=== PATIENT | male | born 1955 | race African-American/Black ===

== ENCOUNTER → 2016-11-16 | Outpatient (CLI) | payer OTHER ==
--- NOTE | 2016-11-16 22:12 | XR ---
EXAMINATION TYPE: XR chest 2V DATE OF EXAM: 11/16/2016 COMPARISON: NONE HISTORY: Shortness of breath. TECHNIQUE: Frontal and lateral views of the chest are obtained. FINDINGS: Sternal wires are present. There is chronic parenchymal change without suspicious focal ai r space opacity, pleural effusion, or pneumothorax seen. The cardiac silhouette size is within ender l limits. The osseous structures are intact. IMPRESSION: No acute cardiopulmonary process.
--- NOTE | 2016-11-16 22:14 | XR ---
EXAMINATION TYPE: XR knee complete LT DATE OF EXAM: 11/16/2016 CLINICAL HISTORY: Left knee pain for years. TECHNIQUE: Three views of the left knee are obtained. COMPARISON: None. FINDINGS: There is no acute fracture/dislocation evident in left knee. There is patella baja. Some o ssific fragmentation along inferior patellar pole is present. There is calcification along distal susanne driceps tendon. Suspect old injury or tear. There is mild to moderate medial compartment joint space loss. Slight genu varum positioning is present. The overlying soft tissue shows anterior bulging trev g course of distal quadriceps tendon which appears slightly thinned. IMPRESSION: Old complete tear quadriceps tendon suspected with low lying patella, inferior fragmentat ion may reflect product of old trauma or degenerative change related to trauma. Other degenerative fi ndings as noted above.
== END | disposition home or self-care (01) ==
LOC: RADXRMAIN 18:05
PROVIDERS: ATTEND Family Medicine
DX: S76.112A Strain of left quadriceps muscle, fascia and tendon, initial encounter (principal); R06.02 Shortness of breath; N41.0 Acute prostatitis
CPT/HCPCS: 71020

== ENCOUNTER → 2016-11-22 | Outpatient (CLI) | payer OTHER ==
--- NOTE | 2016-11-22 17:04 | US ---
EXAMINATION TYPE: US prostate transrectal DATE OF EXAM: 11/22/2016 COMPARISON: NONE CLINICAL HISTORY: N41.0 acute prostatitis. This examination was performed using the transrectal probe. EXAM MEASUREMENTS: Gland Size: 4.5 x 2.1 x 3.7cm Volume: 17.6 Predicted PSA: 2.1 Actual PSA (if available):Not available, patient didn't bring and office closed on . Peripheral zone grossly heterogeneous. Office not open today IMPRESSION: 1. Echogenic foci with posterior shadowing can be compatible with calcification within the prostate. 2. Heterogeneity which can be compatible with prostatitis. Predicted PSA = volume x 0.12 ng/ml Calculated Volume = 0.5236 x L x W x H
== END | disposition home or self-care (01) ==
LOC: RADUSMAIN 07:49
PROVIDERS: ATTEND Family Medicine
DX: N41.0 Acute prostatitis (principal); R93.49 Abnormal radiologic findings on diagnostic imaging of other urinary organs
CPT/HCPCS: 76872

== ENCOUNTER → 2017-01-10 | Outpatient (CLI) | payer OTHER ==
--- NOTE | 2017-01-10 15:25 | BD ---
EXAMINATION TYPE: MG DEXA axial skeleton. DATE OF EXAM: 01/10/2017 COMPARISON: NONE CLINICAL HISTORY: disorder of bone Height: 5'11 Weight: 250 FRAX RISK QUESTIONS: Alcohol (3 or more units per day): no Family History (Parent hip fracture): no Glucocorticoids (More than 3mos): no (Ex: prednisone, prednisolone, methylprednisolone, dexamethasone, and hydrocortisone). History of Fracture in Adulthood: no Secondary Osteoporosis: 1. Type 1 Diabetes: no 2. Hyperthyroidism: no 3. Menopause before 45: na 4. Malnutrition: no 5. Chronic liver disease: no Rheumatoid Arthritis: no Current Tobacco Use: yes RISK FACTORS HISTORY OF: Diet low in dairy products/other sources of calcium: MEDICATIONS: Additional Medications: vitamin D Additional History: EXAM MEASUREMENTS: Bone mineral densitometry was performed using the import2 System. Bone mineral density as measured about the Lumbar spine is: ----- L1-L4(G/cm2): 1.792 T Score Values are as follows: ----- L2: 5.0 ----- L3: 4.7 ----- L4: 6.1 ----- L1-L4: 5.1 Bone mineral density about the R hip (g/cm2): 0.990 Bone mineral density about the L hip (g/cm2): 0.967 T Score values are as follows: -----R Neck: -0.5 -----L Neck: -0.3 -----R Total: -0.4 -----L Total: -0.3 IMPRESSION: Normal (Values between +1 and -1 indicate normal bone mass). Consider repeating this study in 5 year s or sooner if there is some new clinical indication. NOTE: T-SCORE=SD OF THE YOUNG ADULT MEAN.
== END | disposition home or self-care (01) ==
LOC: RADBDWWP 07:56
PROVIDERS: ATTEND Family Medicine
DX: M85.89 Other specified disorders of bone density and structure, multiple sites (principal)
CPT/HCPCS: 77080

== ENCOUNTER → 2017-02-24 | Outpatient (CLI) | payer OTHER ==
--- NOTE | 2017-02-24 09:53 | CT ---
EXAMINATION TYPE: CT abdomen pelvis w con DATE OF EXAM: 02/24/2017 COMPARISON: NONE HISTORY: incisional hernia CT DLP: 1481.3 mGycm Automated exposure control for dose reduction was used. TECHNIQUE: Helical acquisition of images was performed from the lung bases through the pelvis. CONTRAST: Performed with Oral Contrast and with IV Contrast, patient injected with 100 mL of Omnipaque 300. FINDINGS: LUNG BASES: Minimal bibasilar subsegmental dependent atelectasis is present. LIVER/GB: Liver is unremarkable without biliary ductal dilatation. Calcified gallstones are seen with in the gallbladder fundus. No extrahepatic biliary ductal dilatation is evident. PANCREAS: No significant abnormality is seen. SPLEEN: No significant abnormality is seen. ADRENALS: There is slight nodularity of the left adrenal gland although it maintains its adrenal form shape and is without discrete measurable nodule, likely related to adrenal gland hyperplasia. KIDNEYS: No significant abnormality is seen. FREE AIR: No free air is visualized. RETROPERITONEAL ADENOPATHY: None visualized URINARY BLADDER: No significant abnormality is seen. PELVIC ADENOPATHY: None visualized. OSSEOUS STRUCTURES: Moderate degenerative changes are seen of the thoracolumbar spine, lumbosacral s pine, sacroiliac joints, and femoral acetabular joints. Degenerative endplate changes are also apprec iated. BOWEL: No enlarged bowel. No bowel thickening. Probable gastric fundal diverticulum is noted. Small bowel is nondilated. Appendix is air-filled and within normal limits of size. No pericolonic fat stra nding is seen. OTHER: There is a ventral midline incisional hernia with a neck measuring 4.2 cm approximately 8.8 cm above the umbilicus containing nondilated large bowel. No pneumatosis coli is appreciated. No fat st randing is seen surrounding this hernia. The entering exiting loop of large bowel on the left is deco mpressed. No proximal large bowel dilation. CT findings suggest this is nonincarcerated at this time, however this is a clinical finding. Just superior and right lateral although remaining central to th e hernia there is a defect in the abdominal wall measuring 1 cm containing mesenteric fat. Additional ventral abdominal hernia containing the antimesenteric border of a single loop of small tracy wel is present inferior to the index hernia approximately 5 cm superior to the umbilicus with a herni a neck measuring 1.6 cm on image 41. IMPRESSION: 1. MULTIPLE VENTRAL ABDOMINAL HERNIAS WITH THE LARGEST HERNIA NECK MEASURING 4.2 CM APPROXIMATELY 8.8 CM ABOVE THE UMBILICUS CONTAINING NONDILATED LARGE BOWEL WITH NO ADJACENT INFLAMMATORY CHANGE. THE S ECOND HERNIA SEEN JUST SUPERIOR TO THIS CONTAINING MESENTERIC FAT WITH A NECK MEASURING 1.0 CM. THE T HIRD HERNIA IS SEEN APPROXIMATELY 5 CM SUPERIOR TO THE UMBILICUS, RIGHT PARACENTRAL WITH A NECK MEASU RING 1.6 CM CONTAINING THE ANTIMESENTERIC WALL OF A SINGLE LOOP OF BOWEL. 2. CHOLELITHIASIS.
== END | disposition home or self-care (01) ==
LOC: RADCTMAIN 07:14
PROVIDERS: ATTEND Surgery
DX: K80.20 Calculus of gallbladder without cholecystitis without obstruction (principal); K43.9 Ventral hernia without obstruction or gangrene; K42.9 Umbilical hernia without obstruction or gangrene
CPT/HCPCS: 74177